=== PATIENT | female | born 1980 | race Caucasian/White ===

== ENCOUNTER 2020-01-28 18:11 | Emergency (ER) | payer MEDICAID ==
[~2020-01-28] VITALS: Ht 162.6 cm; Wt 65.0 kg
[~2020-01-28 18:11] MED LIST: INSULIN
[2020-01-28] MEDS ORDERED: OFLOXACIN OTIC DROPS/10 ML BOTTLE OT NR (19:15)
[2020-01-28] MEDS ORDERED: DEXAMETHASONE 0.1% EACHEYE NR (19:15)
[2020-01-28 20:52] VITALS: BP 130/91
== END 2020-01-28 20:52 | disposition home or self-care (01) ==
LOC: ER 18:11
DX: S09.8XXA Other specified injuries of head, initial encounter (principal); Y08.89XA Assault by other specified means, initial encounter; Y93.89 Activity, other specified; Y92.89 Other specified places as the place of occurrence of the external cause; Y99.8 Other external cause status; E11.9 Type 2 diabetes mellitus without complications; F12.10 Cannabis abuse, uncomplicated; Z88.8 Allergy status to other drugs, medicaments and biological substances
CPT/HCPCS: 99284